=== PATIENT | female | born 1965 | race Caucasian/White ===

== ENCOUNTER 2019-03-26 09:13 | Day surgery (SDC) | payer OTHER ==
[2019-03-26] MEDS ORDERED: MIDAZOLAM 1 MG/ML 2 ML INJ ×2 (11:18)
[2019-03-26] MEDS ORDERED: FENTAnyl 50 MCG/ML VIAL (11:18)
== END 2019-03-26 13:05 | disposition home or self-care (01) ==
LOC: GIL 09:13
DX: Z12.11 Encounter for screening for malignant neoplasm of colon (principal)
CPT/HCPCS: 45378